=== PATIENT | male | born 1965 | race Caucasian/White ===

== ENCOUNTER 2016-11-07 18:37 | Emergency (ER) | payer OTHER ==
[~2016-11-07] VITALS: Ht 175.3 cm; Wt 98.3 kg
[2016-11-07 18:49] VITALS: TEMP 36.8; Ht 175.3 cm; Wt 98.3 kg
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
[2016-11-07] MEDS ORDERED: OPTIRAY 320 IV PRN (19:00)
[2016-11-07] MEDS ORDERED: XYLOCAINE 1%/SOD BICARB 20 ML VIAL INFIL ONE (19:00)
[2016-11-07] MEDS ORDERED: DIPHTHERIA/TETANUS/PERTUSSIS 0.5 ML SYR/VIAL IM. ONE (19:00)
[2016-11-07 19:17] LABS: HEMATOCRIT 43.4 % (42-52); MEAN CELL VOLUME 88.8 fL (80-100); MEAN CORPUSCULAR HEMOGLOBIN 32.9 pg (25-34); MEAN CORPUSCULAR HGB CONC 37.1 g/dl (32-36); MEAN PLATELET VOLUME 9.5 fL (7.4-10.4); PLATELET COUNT 181 K/uL (130-400); RED BLOOD COUNT 4.89 M/uL (4.7-6.1); WHITE BLOOD COUNT 9.71 K/uL (4.8-10.8)
[2016-11-07 19:17] LABS: ISTAT CREATININE 1.2 mg/dl (0.6-1.3); ISTAT HEMOGLOBIN 15.6 g/dl (14.0-18.0); ISTAT IONIZED CALCIUM 1.2 mmol/l (1.12-1.32)
[2016-11-07 19:32] LABS: PARTIAL THROMBOPLASTIN RATIO 0.9; PROTHROMBIN TIME (PATIENT) 10.7 SECONDS (9.0-12.0)
[2016-11-07 19:32] LABS: URINE APPEARANCE CLEAR (CLEAR); URINE BILIRUBIN NEG (NEG); URINE COLOR YELLOW; URINE NITRITE NEG (NEG); URINE PH 5.5 (4.5-7.5); URINE SPECIFIC GRAVITY 1.006 (1.000-1.030); UROBILINOGEN NEG (NEG); ZZUR CULT IF INDIC CLEAN CATCH NO
[2016-11-07 19:36] LABS: MANUAL MICROSCOPIC REQUIRED? NO; REVIEW REQ? NO
[2016-11-07 19:40] LABS: BUN/CREATININE RATIO 9.7 (10-20); CALCIUM 9.7 mg/dl (8.5-10.1); CREATININE 1.1 mg/dl (0.60-1.40); POTASSIUM 3.6 mmol/L (3.5-5.1)
[2016-11-07 19:43] LABS: ALB/GLOB RATIO 1.2 (0.9-2)
[2016-11-07 19:50] LABS: BENZODIAZEPINE, URINE NEG (NEG); COCAINE,URINE NEG (NEG); PHENCYCLIDINE, URINE NEG (NEG)
[2016-11-07 19:50] LABS: COMPLETE YES; EOSINOPHIL % 0.9 %; LYMPH ABS # 1.03 K/uL (1.2-3.4); LYMPHOCYTE % 10.6 %; MYELOCYTE % 0.9 %; NEUTROPHILS % 70.8 %; VARIANT LYMPHOCYTE % 12.4 %
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
[2016-11-07] MEDS ORDERED: AMOXICIL/CLAVU 875MG HOME PACK PO ONE (21:15)
[2016-11-07] MEDS ORDERED: AMOX875T PO (21:33)
[2016-11-07 22:09] VITALS: BP 128/80; PULSE 98; O2SAT 98
== END 2016-11-07 22:10 | disposition home or self-care (01) ==
LOC: EDBD 18:37 → C.EDA 18:39
DX: S01.81XA Laceration without foreign body of other part of head, initial encounter (principal); S02.2XXA Fracture of nasal bones, initial encounter for closed fracture; S30.811A Abrasion of abdominal wall, initial encounter; F10.129 Alcohol abuse with intoxication, unspecified; V47.5XXA Car driver injured in collision with fixed or stationary object in traffic accident, initial encounter; Y92.410 Unspecified street and highway as the place of occurrence of the external cause

== ENCOUNTER → 2016-11-07 | Outpatient (CLI) | payer OTHER ==
[~2016-11-07] MED LIST: AMOX875T PO; METO25TA3 PO; ONDA4TAB65 PO
== END | disposition home or self-care (01) ==
LOC: C.LAB 18:57
DX: Z02.83 Encounter for blood-alcohol and blood-drug test (principal)

== ENCOUNTER 2017-02-19 22:19 | Emergency (ER) | payer OTHER ==
[~2017-02-19] VITALS: Ht 175.3 cm; Wt 94.0 kg
[2017-02-19 22:38] VITALS: Ht 175.3 cm; Wt 94.0 kg
[2017-02-20 00:04] LABS: BASO % 0.2 %; BASO ABS # 0.02 K/uL (0-0.2); COMPLETE YES; EOS % 0.7 %; HEMATOCRIT 43.9 % (42-52); IG% 0.3 %; LYMPH % 10.4 %; LYMPH ABS # 1.01 K/uL (1.2-3.4); MEAN CORPUSCULAR HEMOGLOBIN 31.4 pg (25-34); MEAN CORPUSCULAR HGB CONC 35.3 g/dl (32-36); MEAN PLATELET VOLUME 9.4 fL (7.4-10.4); MONO % 5.2 %; NEUT % 83.2 %; PLATELET COUNT 211 K/uL (130-400); RED BLOOD COUNT 4.93 M/uL (4.7-6.1); WHITE BLOOD COUNT 9.69 K/uL (4.8-10.8)
[2017-02-20] MEDS ORDERED: ONDANSETRON INJ 2 MG/ML 2 ML VIAL IV STA (00:10)
[2017-02-20] MEDS ORDERED: KETOROLAC TROMETHAMINE 30 MG/ML VIAL IV STA (00:10)
[2017-02-20] MEDS ORDERED: SODIUM CHLORIDE 0.9% 1000ML 1,000 ML IV STA (00:10)
[2017-02-20] MEDS ORDERED: OPTIRAY 320 IV PRN (00:15)
[2017-02-20 00:23] LABS: ALT/SGPT 29 U/L (12-78); AST/SGOT 21 U/L (15-37); BLOOD UREA NITROGEN 14 mg/dl (7-18); BUN/CREATININE RATIO 14.1 (10-20); CALCIUM 9.3 mg/dl (8.5-10.1); CARBON DIOXIDE 30 mmol/L (21-32); CHLORIDE 107 mmol/L (98-107); CREATININE 0.98 mg/dl (0.60-1.40); GLUCOSE 139 mg/dl (70-99); POTASSIUM 4.1 mmol/L (3.5-5.1); SODIUM 144 mmol/L (136-145)
[2017-02-20 00:26] LABS: ALKALINE PHOSPHATASE 49 U/L (45-117)
[2017-02-20 00:46] LABS: URINE APPEARANCE CLEAR (CLEAR); URINE BILIRUBIN NEG (NEG); URINE COLOR YELLOW; URINE NITRITE NEG (NEG); URINE PH 6.5 (4.5-7.5); URINE SPECIFIC GRAVITY 1.027 (1.000-1.030); UROBILINOGEN NEG (NEG); ZZUR CULT IF INDIC CLEAN CATCH NO
[2017-02-20 00:51] LABS: MANUAL MICROSCOPIC REQUIRED? NO; REVIEW REQ? NO
[2017-02-20] MEDS ORDERED: METO25TA3 PO (01:40)
[2017-02-20] MEDS ORDERED: ONDA4TAB65 PO (02:05)
[2017-02-20 02:25] VITALS: BP 141/89; PULSE 62; TEMP 36.3; O2SAT 100
--- NOTE | 2017-02-20 04:01 | EMERGENCY ROOM VISIT NOTE ---
History Report prepared by Billieibmichi: Cristiano Lugo Under the Supervision of: Dr. Jason Rodríguez D.O. First contact with patient: 23:58 Chief Complaint: GI ASSESSMENT Stated Complaint: SICK IN STOMACH, CONSTIPATED History of Present Illness The patient is a 51 year old male who presents to the Emergency Room with complaints of constant abdominal pain since 1800. He rates his discomfort as a 6 /10 in severity. The patient reports that he went to [facility], had chicken parmesan and ice cream, returned home. He states that he started to experience abdominal pain, diaphoresis, nausea, and vomiting around 1800 after his visit to [facility]. The patient states that he vomited his food a total of three times. He admits he feels mild relief after vomiting but admits the nausea shortly returns. He reports that he has been feeling like he needs to have a bowel movement, but cannot move anything. The patient states he was able to move his bowels earlier today. He admits that the pain is diffuse in the middle of his belly tracking from suprapubic region to just above his umbilicus. The patient is accompanied by his daughter who states she has been feeling fine, despite eating the same food as him. The patient denies headache, change in vision, fevers, chest pain, shortness of breath, diarrhea, pain with urination, and melena. Source of History: patient Onset: 1800 Position: abdomen Symptom Intensity: 6/10 Timing: constant Associated Symptoms: + nausea, + vomiting Review of Systems See HPI for pertinent positives & negatives. A total of 10 systems reviewed and were otherwise negative. Past Medical & Surgical Medical Problems: (1) Hypertension Family History Hypertension Social History Smoking Status: Never Smoker Smokeless Tobacco Use: No Alcohol Use: none Drug Use: none Marital Status: Housing Status: lives with family Occupation Status: employed Current/Historical Medications Scheduled Metoprolol Succ (Toprol Xl) (Toprol-Xl), 25 MG PO DAILY Ondansetron Hcl (Zofran), 4 MG PO TID Allergies Coded Allergies: No Known Allergies (Unverified , 02/20/17) Physical Exam Vital Signs Date Time Temp Pulse Resp B/P (MAP) Pulse Ox O2 Delivery O2 Flow Rate FiO2 02/20/17 02:25 36.3 62 18 141/89 100 02/20/17 02:24 62 18 141/89 100 Room Air 02/20/17 01:39 61 18 148/88 100 Room Air 02/20/17 00:39 61 18 152/91 100 Room Air 02/19/17 22:38 36.3 61 18 185/91 99 Room Air Physical Exam GENERAL: Standing in room, alert, well appearing, well nourished, disheveled, slightly distress, non-toxic EYE EXAM: normal conjunctiva, PERRL and EOM's grossly intact OROPHARYNX: no exudate, no erythema, lips, buccal mucosa, and tongue normal and mucous membranes are moist NECK: supple, no nuchal rigidity, no adenopathy, non-tender LUNGS: Clear to auscultation. Normal chest wall mechanics HEART: no murmurs, S1 normal and S2 normal ABDOMEN: Minimal diffuse tenderness upon palpation, abdomen soft, normal active bowel sounds, no masses, no rebound or guarding. BACK: Back is symmetrical on inspection and there is no deformity, no midline tenderness, no CVA tenderness. SKIN: no rashes and no bruising UPPER EXTREMITIES: upper extremities are grossly normal. LOWER EXTREMITIES: No pitting edema. NEURO EXAM: Normal sensorium, cranial nerves II-XII grossly intact, normal speech, no gross weakness of arms, no gross weakness of legs. Gross sensation intact. Medical Decision & Procedures ER Provider Diagnostic Interpretation: Radiology results as stated below per my review and the radiologist's interpretation: CT ABDOMEN & PELVIS: Compared to CT abdomen and pelvis 11/07/2016 L1 compression fracture, acute versus subacute. Cholelithiasis without CT evidence of acute cholecystitis or acute pancreatitis. Small hiatal hernia. No bowel obstruction. Unremarkable appendix. There are a few colonic diverticula, but no Ct evidence of acute diverticulitis. No free fluid. No free air. Radiologist: Ermelinda Medellin M.D. Laboratory Results 02/19/17 23:40 Red Blood Count 4.93, Mean Corpuscular Volume 89.0, Mean Corpuscular Hemoglobin 31.4, Mean Corpuscular Hemoglobin Concent 35.3, Mean Platelet Volume 9.4, Neutrophils (%) (Auto) 83.2, Lymphocytes (%) (Auto) 10.4, Monocytes (%) (Auto) 5.2, Eosinophils (%) (Auto) 0.7, Basophils (%) (Auto) 0.2, Neutrophils # (Auto) 8.06, Lymphocytes # (Auto) 1.01, Monocytes # (Auto) 0.50, Eosinophils # (Auto) 0.07, Basophils # (Auto) 0.02 02/19/17 23:40 Test 02/19/17 23:40 02/20/17 00:33 White Blood Count 9.69 K/uL (4.8-10.8) Red Blood Count 4.93 M/uL (4.7-6.1) Hemoglobin 15.5 g/dL (14.0-18.0) Hematocrit 43.9 % (42-52) Mean Corpuscular Volume 89.0 fL (80-100) Mean Corpuscular Hemoglobin 31.4 pg (25-34) Mean Corpuscular Hemoglobin Concent 35.3 g/dl (32-36) Platelet Count 211 K/uL (130-400) Mean Platelet Volume 9.4 fL (7.4-10.4) Neutrophils (%) (Auto) 83.2 % Lymphocytes (%) (Auto) 10.4 % Monocytes (%) (Auto) 5.2 % Eosinophils (%) (Auto) 0.7 % Basophils (%) (Auto) 0.2 % Neutrophils # (Auto) 8.06 K/uL (1.4-6.5) Lymphocytes # (Auto) 1.01 K/uL (1.2-3.4) Monocytes # (Auto) 0.50 K/uL (0.11-0.59) Eosinophils # (Auto) 0.07 K/uL (0-0.5) Basophils # (Auto) 0.02 K/uL (0-0.2) RDW Standard Deviation 38.7 fL (36.4-46.3) RDW Coefficient of Variation 12.0 % (11.5-14.5) Immature Granulocyte % (Auto) 0.3 % Immature Granulocyte # (Auto) 0.03 K/uL (0.00-0.02) Anion Gap 7.0 mmol/L (3-11) Est Creatinine Clear Calc Drug Dose 103.2 ml/min Estimated GFR () 104.5 Estimated GFR (Non- 90.2 BUN/Creatinine Ratio 14.1 (10-20) Calcium Level 9.3 mg/dl (8.5-10.1) Total Bilirubin 0.4 mg/dl (0.2-1) Direct Bilirubin < 0.1 mg/dl (0-0.2) Aspartate Amino Transf (AST/SGOT) 21 U/L (15-37) Alanine Aminotransferase (ALT/SGPT) 29 U/L (12-78) Alkaline Phosphatase 49 U/L (45-117) Total Protein 7.3 gm/dl (6.4-8.2) Albumin 3.9 gm/dl (3.4-5.0) Lipase 233 U/L (73-393) Urine Color YELLOW Urine Appearance CLEAR (CLEAR) Urine pH 6.5 (4.5-7.5) Urine Specific [place] 1.027 (1.000-1.030) Urine Protein NEG (NEG) Urine Glucose (UA) NEG (NEG) Urine Ketones TRACE (NEG) Urine Occult Blood NEG (NEG) Urine Nitrite NEG (NEG) Urine Bilirubin NEG (NEG) Urine Urobilinogen NEG (NEG) Urine Leukocyte Esterase NEG (NEG) Urine WBC (Auto) 1-5 /hpf (0-5) Urine RBC (Auto) 0-4 /hpf (0-4) Urine Hyaline Casts (Auto) 1-5 /lpf (0-5) Urine Epithelial Cells (Auto) 10-20 /lpf (0-5) Urine Bacteria (Auto) NEG (NEG) Laboratory results per my review. Medications Administered Medications (Trade) Dose Ordered Sig/Estee Route Start Time Stop Time Status Last Admin Dose Admin Sodium Chloride 1,000 ml @ 999 mls/hr Q1H1M STAT IV 02/20/17 00:10 02/20/17 01:10 DC 02/20/17 00:28 999 MLS/HR Ondansetron HCl (Zofran Inj) 4 mg NOW STAT IV 02/20/17 00:10 02/20/17 00:12 DC 02/20/17 00:28 4 MG Ketorolac Tromethamine (Toradol Inj) 30 mg NOW STAT IV 02/20/17 00:10 02/20/17 00:12 DC 02/20/17 00:29 30 MG ED Course ED COURSE: Vital signs were reviewed and showed hypertension. The patients medical record was reviewed The above diagnostic studies were performed and reviewed. ED treatments and interventions as stated above. 0001: The patient was evaluated in room A11B. A complete history and physical examination was performed. 0010: Toradol Injection 30 mg IV, Zofran Injection 4 mg IV, Sodium chloride 1000 ml @ 999 mls/hr IV. 0015: Ioversol 100 ml IV. 0228: Upon reevaluation, the patient is feeling better. I discussed the findings and the treatment plan with the patient. He verbalizes agreement and understanding. He was discharged home. Medical Decision Differential diagnoses includes but is not limited to gastritis, peptic ulcer disease, GERD, gallbladder disease, pancreatitis, small bowel obstruction, acute coronary syndrome, pericarditis, ischemic bowel, irritable bowel disease, irritable bowel syndrome, appendicitis, diverticulitis, malignancy, hernia, urinary tract infection, torsion, perforation, trauma, infectious. Blood pressure screening: Patient was found to have an elevated blood pressure and was referred to their primary doctor for recheck and further treatment. Medication Reconciliation: I attest that I have personally reviewed the patient' s current medication list. Patient is a 51-year-old male who presents the ER for diffuse abdominal pain associated with nausea and vomiting. This started suddenly after eating dinner. No other sick contacts. Patient notes that after he vomits he does feel slightly better. Vitals show hypertension. CBC along with BMP, LFTs, bilirubin and lipase are normal. UA was negative. CT of the abdomen and pelvis was negative. Patient was given fluids, Zofran and Toradol. He felt sniffly better. No additional vomiting in the ER. Repeat abdominal exam was benign. He was updated in regards to his findings and discharged to follow-up with PCP. Discussed with Pt concerning signs and symptoms to watch out for. Pt was instructed to follow up with their PCP and discussed with the patient their option to return to the ED at anytime for persistent or worsening symptoms. The appropriate anticipatory guidance and out-patient management, including indications for return to the emergency department, were explained at length to the patient and understood. Impression Primary Impression: Vomiting Additional Impression: Diffuse abdominal pain Scribe Attestation The scribe's documentation has been prepared under my direction and personally reviewed by me in its entirety. I confirm that the note above accurately reflects all work, treatment, procedures, and medical decision making performed by me. Departure Information Dispostion Home / Self-Care Prescriptions Ondansetron Hcl (ZOFRAN) 4 Mg Tab 4 MG PO TID for nausea for 5 Days, #15 TAB Prov: Jason Rodríguez, DO 02/20/17 Referrals William Neumann M.D. (PCP) Forms HOME CARE DOCUMENTATION FORM, IMPORTANT VISIT INFORMATION Patient Instructions My [facility] Additional Instructions Please follow up with your primary care doctor with in the next 24 hours. Any worsening of your symptoms, please return to the ED immediately. This includes bloody vomit, unable to eat or drink, passing out, worsening pain, or any other concerning signs or symptoms from your standpoint. Problem Qualifiers Primary Impression: Vomiting Vomiting type: unspecified Vomiting Intractability: non-intractable Nausea presence: with nausea Qualified Codes: R11.2 - Nausea with vomiting, unspecified
--- NOTE | 2017-02-20 06:50 | DIAGNOSTIC IMAGING REPORT ---
CT ABD/PELVIS IV CONTRAST ONLY CLINICAL HISTORY: Diffuse abdominal pain COMPARISON STUDY: 11/07/2016 TECHNIQUE: Following the IV administration of 93 mL of Optiray-320, CT scan of the abdomen and pelvis was performed from the lung bases to the proximal femurs. Images are reviewed in the axial, sagittal, and coronal planes. IV contrast was administered without complication. CT DOSE: 553.62 mGy.cm FINDINGS: Lower chest: There is minor basilar atelectatic change Liver: There is a to small to characterize 6 mm hypodensity within the right hepatic lobe immediately beneath the dome of the diaphragm Gallbladder: There is a gallstone present. The gallbladder is distended. No ductal dilatation is visualized. Spleen: Normal in size and attenuation. Pancreas: Unremarkable. Adrenal glands: Unremarkable. Kidneys: Is a 7 mm right renal hypodensity, likely representing a cyst. There is no hydronephrosis. Bowel: There are no transition zones indicate bowel obstruction. The appendix appears normal. There are few scattered diverticula present. There is very subtle stranding of the peridiverticular fat at the descending sigmoid junction. Minimal diverticulitis cannot be excluded. Peritoneum: There is no intraperitoneal free air or abdominal ascites. There is a fat-containing left inguinal hernia Vasculature: The abdominal aorta is normal in course and caliber. Adenopathy: None. Pelvic viscera: The bladder, and pelvic viscera are unremarkable. 5. Fat-containing left inguinal hernia Skeletal structures: There is a minimal superior endplate L1 compression deformity. There is disc osteophyte complex at the L3-4 level. IMPRESSION: 1. No evidence of bowel obstruction. No evidence of free air 2. Cholelithiasis. Mildly distended gallbladder. 3. Normal appendix 4. Fat-containing left inguinal hernia 5. Minimal fat stranding adjacent to a diverticulum at the descending sigmoid junction. Minimal diverticulitis cannot be excluded. This finding was not described on the pulmonary report, and therefore will be called. Electronically signed by: Edmundo Cross M.D. 02/20/2017 6:49 AM Dictated Date/Time: 02/20/2017 6:41 AM
--- NOTE | 2017-02-20 11:20 | Pharmacy Progress Note ---
ED Pharmacist Progress Note Date of Service: Feb 20, 2017. Requested by charge loader to contact patient to inform of diverticulitis (per CT) and need for antibiotics per Dr. Rodríguez. Spoke with patient and informed of above. Confirmed NKDA. Prescription for Augmentin 875 mg po BID x10 days, 0 refill, Dr. Rodríguez called to [facility] at the patient's request.
== END 2017-02-20 02:26 | disposition home or self-care (01) ==
LOC: C.EDB 22:20 → C.EDA 02-20 02:26
DX: R11.2 Nausea with vomiting, unspecified (principal); R10.9 Unspecified abdominal pain; I10 Essential (primary) hypertension

== ENCOUNTER 2017-05-31 08:52 | Observation (INO) | payer OTHER ==
[~2017-05-31] VITALS: Ht 175.3 cm; Wt 98.5 kg
[~2017-05-31 08:52] MED LIST changes: -AMOX875T PO; -ONDA4TAB65 PO
[2017-05-31] MEDS ORDERED: SERT25TA PO (09:29)
[2017-05-31] MEDS ORDERED: SODIUM CHLORIDE 0.9% 1000ML 1,000 ML IV STA (10:16)
[2017-05-31] MEDS ORDERED: PROMETHAZINE HCL INJ 12.5 MG in SODIUM CHLORIDE 0.9% 50ML 50 ML IV STA (10:16)
[2017-05-31] MEDS ORDERED: MoRPHine SULFATE 4 MG/ML 1 ML CARP\\VIAL IV STA (10:16)
[2017-05-31 10:27] LABS: BASO % 0.2 %; BASO ABS # 0.02 K/uL (0-0.2); COMPLETE YES; HEMATOCRIT 43.8 % (42-52); IG% 0.2 %; LYMPH % 6.6 %; LYMPH ABS # 0.87 K/uL (1.2-3.4); MEAN CELL VOLUME 87.4 fL (80-100); MEAN CORPUSCULAR HEMOGLOBIN 31.5 pg (25-34); MEAN CORPUSCULAR HGB CONC 36.1 g/dl (32-36); MEAN PLATELET VOLUME 9.4 fL (7.4-10.4); MONO % 3.3 %; NEUT % 89.7 %; PLATELET COUNT 177 K/uL (130-400); RED BLOOD COUNT 5.01 M/uL (4.7-6.1); WHITE BLOOD COUNT 13.09 K/uL (4.8-10.8)
[2017-05-31 10:53] LABS: BUN/CREATININE RATIO 14.1 (10-20); CALCIUM 9.3 mg/dl (8.5-10.1); POTASSIUM 4.2 mmol/L (3.5-5.1)
[2017-05-31] MEDS ORDERED: OPTIRAY 320 IV PRN (11:30)
--- NOTE | 2017-05-31 11:34 | DIAGNOSTIC IMAGING REPORT ---
CT SCAN OF THE ABDOMEN AND PELVIS WITH IV CONTRAST CLINICAL HISTORY: Generalized abdominal pain. Vomiting. COMPARISON STUDY: Abdominal CT dated 02/20/2017. TECHNIQUE: Following the IV administration of 93 cc of Optiray 320, CT scan of the abdomen and pelvis is performed from the lung bases to the proximal femora. Images are reviewed in the axial, sagittal, and coronal planes. IV contrast was administered without complication. A dose lowering technique was utilized adhering to the principles of ALARA. CT DOSE: 624.32 mGy.cm FINDINGS: Lung bases: The heart is top normal in size and without pericardial effusion. There is bibasilar atelectasis. A calcified granuloma is noted at the left lung base. The lung bases are otherwise clear. There is a small hiatal hernia. Liver: The contrast-enhanced liver is top normal in size and demonstrates diminished attenuation suggesting hepatic steatosis. A 12 mm cyst is seen in the right lobe. An additional subcentimeter hypodensity in segment VIII seen on image #41 is unchanged. This also likely represents a cyst but is too small for definitive characterization.. There is no intrahepatic biliary ductal dilatation. The hepatic veins and portal veins are patent. Gallbladder: The gallbladder wall is thickened and edematous. There is pericholecystic inflammation and trace fluid. The appearance is consistent with acute cholecystitis. Spleen: Normal in size and attenuation. Pancreas: Unremarkable. Adrenal glands: Unremarkable. Kidneys: The contrast enhanced kidneys are normal in size and without hydronephrosis. The kidneys enhance symmetrically. A subcentimeter cortical hypodensity in the right upper pole likely represents a cyst but is too small for definitive characterization. Abdominal vasculature: The abdominal aorta is normal in course and caliber. Bowel: The small bowel and colon are normal in course and caliber. The appendix is well-visualized and normal. Peritoneum: There is no intraperitoneal free air or abdominal ascites. There is a small fat-containing umbilical hernia. Lymphadenopathy: None. Pelvic viscera: The bladder, prostate, and seminal vesicles are normal as imaged. Skeletal structures: No lytic or blastic lesions are seen. IMPRESSION: 1. Findings are consistent with acute cholecystitis. Surgical consultation is advised. 2. Findings suggest mild hepatic steatosis. 3. Additional findings as above. Electronically signed by: Lai Naik M.D. 05/31/2017 11:33 AM Dictated Date/Time: 05/31/2017 11:28 AM
--- NOTE | 2017-05-31 12:20 | DIAGNOSTIC IMAGING REPORT ---
ABDOMINAL ULTRASOUND, RIGHT UPPER QUADRANT HISTORY: Generalized ABDOMINAL PAIN, ACUTE JAVID ON CT. COMPARISON: Abdomen and pelvis CT 05/31/2017. FINDINGS: Pancreas: Obscured by overlying bowel gas. Liver: The liver is echogenic consistent with fatty change. Gallbladder: Thickened and irregular gallbladder wall measures up to 4 mm. Trace pericholecystic fluid. Increased echogenicity within the surrounding fat suggestive of inflammatory change. There is a 1.7 cm stone within the neck of the gallbladder which may be impacted. Therefore, these findings are highly suspicious for acute cholecystitis. CBD: Obscured by overlying bowel gas. Right kidney: No hydronephrosis. IMPRESSION: Abnormal appearing gallbladder containing a 1.7 cm stone which may be impacted in the gallbladder neck. These findings are highly suspicious for acute cholecystitis. Surgical consultation is recommended. Electronically signed by: Austen Kevin M.D. 05/31/2017 12:19 PM Dictated Date/Time: 05/31/2017 12:16 PM
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
[2017-05-31] MEDS ORDERED: CONRAY 60% 50 ML VIAL ONE (13:39)
[2017-05-31] MEDS ORDERED: HEPARIN SOD (PORCINE) 1000 UNIT/ML 10 ML VIAL ONE (13:39)
[2017-05-31] MEDS ORDERED: BUPIVACAINE 0.5 % 5 MG/1 ML MPF 30ML VIAL ONE (13:39)
[2017-05-31] MEDS ORDERED: CEFAZOLIN SOD 1 GM VIAL ONE (13:39)
[2017-05-31] MEDS ORDERED: EpHEDrine SULFATE INJ 50 MG/ML AMP IV PRN (13:45)
[2017-05-31] MEDS ORDERED: ATROPINE SULFATE 0.1 MG/ML 5ML SYR IV PRN (13:45)
[2017-05-31] MEDS ORDERED: FENTANYL CITRATE INJ 50 MCG/1 ML 2 ML VIAL IV PRN (13:45)
[2017-05-31] MEDS ORDERED: FENTANYL CITRATE INJ 50 MCG/1 ML 2 ML VIAL ONE ×2 (13:50→15:21)
[2017-05-31] MEDS ORDERED: MIDAZOLAM HCL 1 MG/ML 2ML VIAL ONE (13:50)
[2017-05-31] MEDS ORDERED: CEFAZOLIN IV 2,000 MG/60 ML D5W IV ONE (13:59)
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
[2017-05-31] MEDS ORDERED: ROCURONIUM BROMIDE 10 MG/ML 5 ML VIAL IV ONE (14:51)
[2017-05-31] MEDS ORDERED: GLYCOPYRROLATE INJ 0.2 MG/ML VIAL ONE (14:51)
[2017-05-31] MEDS ORDERED: SUCCINYLCHOLINE 100MG/5ML SYR IV ONE (14:51)
[2017-05-31] MEDS ORDERED: LIDOCAINE HCL 2% 2 ML VIAL (20MG/ML) ONE (14:51)
[2017-05-31] MEDS ORDERED: DEXAMETHASONE SOD INJ 4 MG/ML VIAL ONE (14:51)
[2017-05-31] MEDS ORDERED: NEOSTIGMINE METHYLSULFATE 5 MG/5 ML SYR ONE (14:51)
[2017-05-31] MEDS ORDERED: PROPOFOL IV EMULSION 10 MG/ML 20 ML VIAL IV ONE (14:51)
[2017-05-31] MEDS ORDERED: METOCLOPRAMIDE HCL INJ 5 MG/ML 2 ML VIAL ONE (14:51)
[2017-05-31] MEDS ORDERED: EpHEDrine SULFATE INJ 50 MG/ML AMP ONE (14:52)
[2017-05-31] MEDS ORDERED: PHENYLEPHRINE HCL INJ 10 MG/ML VIAL ONE (14:52)
[2017-05-31] MEDS ORDERED: D5W AND 1/2NSS + 20MEQ KCL 1,000 ML IV SCH (16:01)
--- NOTE | 2017-05-31 16:01 | [facility] Post Operative Brief Note ---
Immediate Operative Summary Operative Date May 31, 2017. Pre-Operative Diagnosis Acute Cholecystitis Post-Operative Diagnosis Acute Cholecystitis Procedure(s) Performed Laparoscopic Cholecystectomy Surgeon Galen Ui Lead Developer Surgeon(s) Iram Mandujano PA-C Estimated Blood Loss 20CC Findings See idctation Specimens A: Gallbladder and Contents Drains None Anesthesia General Complication(s) None Disposition Recovery Room / PACU
[2017-05-31] MEDS ORDERED: MoRPHine SULFATE 4 MG/ML 1 ML CARP\\VIAL IV PRN (16:15)
[2017-05-31] MEDS ORDERED: OXYCODONE/ACETAMINOPHEN 5-325 TAB PO PRN (16:15)
[2017-05-31] MEDS ORDERED: IV FLUIDS COMPLETED PRN (16:30)
--- NOTE | 2017-05-31 16:31 | OPERATIVE REPORT ---
DATE OF OPERATION: 05/31/2017 PREOPERATIVE DIAGNOSES: Cholelithiasis, acute cholecystitis. POSTOPERATIVE DIAGNOSIS: Same. PROCEDURE: Laparoscopic cholecystectomy. SURGEON: Dr. Aaron. RENT CONTROL OFFICE MANAGER: Iram Mandujano PA-C. FINDINGS: The gallbladder wall was markedly thickened. There were stones within the lumen. There were adhesions of the omentum to the gallbladder. The cystic duct was not dilated. The liver was of normal size and contour. TECHNIQUE: The patient was given a general anesthetic and the area was prepped and draped in usual sterile fashion. Transverse incision was made below the umbilicus, carried down through the subcutaneous tissue to the fascia which was grasped with 2 Megan clamps and incised between. The peritoneum was identified, incised, and the introducer was placed bluntly. The abdomen was then insufflated to a pressure of 15 mmHg of carbon dioxide. The upper midline, mid clavicular and anterior axillary introducers were placed under direct vision through small skin incisions. I attempted to grasp the gallbladder to place traction, but could not. The drainage needle was then passed under direct vision into the gallbladder and some bile was removed which did eventually allow us to grasp the gallbladder to place upward traction. The adhesions were taken down using blunt and cautery dissection where appropriate. The duodenum was adherent to the inferior portion of the infundibulum, but fortunately those were flimsy and were taken down with ease. No cautery was used for that dissection. I was then able to identify the infundibulum, elevate it and divide the attachments on the underside of the infundibulum and work up along the infundibulum towards the body and divide the attachments to the liver in that area. I then peeled additional thickened peritoneum and some lymphatics and connective tissue inferiorly towards the common bile duct and worked into the triangle of Calot opening it and dissecting the gallbladder away from the liver on that side. It required additional meticulous dissection staying on the wall of the gallbladder at the level of the infundibulum and dissecting it away from the liver working from lateral to medial. That then exposed a window behind the cystic duct. I then had to dissect the medial wall of the cystic duct free using blunt cautery and some hydrodissection as well. That allowed me then to confidently identify the cystic duct and its junction with the gallbladder. Further dissection of those lymphatics and connective tissue and thickened tissues off the medial wall peeled towards the common bile duct exposed the cystic artery. There was a good window behind those 2 structures. Three clips were placed on the proximal cystic duct, one near the junction with the gallbladder and it was divided. The infundibulum was elevated and further dissection of the artery was performed. There appeared to be a branch that was entering the liver and I then stayed on the gallbladder, dissected the infundibulum away from the liver working from this time medial to lateral, which allowed a good plane behind the portion of the artery that was extending to the gallbladder. Two clips were placed on the proximal portion of the artery, one near the gallbladder and it was divided. Gallbladder was then peeled off the liver bed. There was not a good plane of dissection. It required meticulous careful dissection to stay on the wall of the gallbladder and to stay in a plane that did not violate the liver tissue. I was eventually able to complete that dissection. The gallbladder was placed into an Endobag and brought out through the upper midline incision where the skin incision had to be increased in size as well as the incision in the fascia in order to extract the gallbladder within the bag. That introducer was replaced and liver edge was elevated. The subdiaphragmatic and subhepatic spaces were irrigated and the irrigation removed and that was repeated until the return was clear. Inspection of the gallbladder bed of the liver revealed 1 small area of oozing that was easily controlled with cautery. The previously placed clips were inspected and were intact. Further irrigation was performed, removed and the gallbladder bed of the liver was again inspected and there was no bleeding. The gas was allowed to escape and the introducers were removed. The fascia of the umbilical and upper midline introducer sites was closed with interrupted 0 Vicryl and skin of all the incisions was closed with 4-0 Monocryl in either an interrupted or running subcuticular fashion. Skin was anesthetized with 0.5% Marcaine. The skin was cleansed, dried, benzoin placed, Steri-Strips applied. Estimated blood loss was 20 mL. Sponge, needle and instrument counts were correct prior to closure. The patient tolerated the surgical procedure without complication and was transferred to recovery. I attest to the content of the Intraoperative Record and any orders documented therein. Any exception s are noted below.
--- NOTE | 2017-05-31 16:57 | Anesthesiology Progress Note ---
Anesthesia Post Op Note Date & Time May 31, 2017 at 16:57 Vital Signs Pain Intensity: 0 Vital Signs Past 12 Hours Date Time Temp Pulse Resp B/P (MAP) Pulse Ox O2 Delivery O2 Flow Rate FiO2 05/31/17 16:54 89 25 99 05/31/17 16:54 89 25 05/31/17 16:50 133/76 05/31/17 16:49 89 22 05/31/17 16:49 89 22 99 05/31/17 16:45 130/75 05/31/17 16:44 88 18 100 05/31/17 16:44 89 18 05/31/17 16:40 133/76 05/31/17 16:39 91 18 05/31/17 16:39 91 18 99 05/31/17 16:35 127/74 05/31/17 16:34 96 18 100 05/31/17 16:34 95 18 05/31/17 16:30 133/73 05/31/17 16:29 102 12 100 05/31/17 16:29 102 12 05/31/17 16:25 133/71 05/31/17 16:24 36.6 93 18 137/72 100 Oxymask 10 05/31/17 16:24 97 24 137/72 100 05/31/17 16:24 98 24 05/31/17 13:48 70 16 168/101 97 05/31/17 12:29 70 16 168/101 97 Room Air 05/31/17 10:46 76 16 172/97 98 Room Air 05/31/17 09:28 77 16 165/94 98 Room Air 05/31/17 09:03 36.7 82 16 166/99 98 Room Air Notes Mental Status: alert / awake / arousable, participated in evaluation Pt Amnestic to Procedure: Yes Nausea / Vomiting: adequately controlled Pain: adequately controlled Airway Patency, RR, SpO2: stable & adequate BP & HR: stable & adequate Hydration State: stable & adequate Anesthetic Complications: no major complications apparent
[2017-05-31 17:20] VITALS: BP 135/83; PULSE 90; TEMP 37; O2SAT 97; Ht 175.3 cm; Wt 98.5 kg
[2017-05-31 17:52] VITALS: BP 136/77; PULSE 88; TEMP 36.8; O2SAT 97
[2017-05-31] MEDS: D5W AND 1/2NSS + 20MEQ KCL 1,000 ML IV SCH (18:08)
[2017-05-31 18:27] VITALS: BP 132/71; PULSE 93; TEMP 37.1; O2SAT 97
[2017-05-31 19:20] VITALS: BP 133/74; PULSE 101; TEMP 37; O2SAT 96
[2017-05-31] MEDS ORDERED: NURSING DECISION MEDICATION ORDER SCH (20:15)
[2017-05-31] MEDS ORDERED: COUGH DROP (SUGAR FREE) LOZ 24 LOZ/1 BOX PO PRN (20:15)
[2017-05-31 20:26] VITALS: BP 138/68; PULSE 110; TEMP 37.5; O2SAT 94
[2017-05-31 23:17] VITALS: BP 126/75; PULSE 101; TEMP 36.9; O2SAT 96
[2017-06-01] MEDS: D5W AND 1/2NSS + 20MEQ KCL 1,000 ML IV SCH (03:24)
[2017-06-01 04:00] VITALS: BP 131/79; PULSE 94; TEMP 36.8; O2SAT 94
[2017-06-01 07:29] VITALS: BP 151/91; PULSE 84; TEMP 36.4; O2SAT 96
--- NOTE | 2017-06-01 08:11 | Anesthesiology Progress Note ---
Anesthesia Post Op Note Date & Time Jun 01, 2017 at 08:10 Vital Signs Pain Intensity: 4.0 Vital Signs Past 12 Hours Date Time Temp Pulse Resp B/P (MAP) Pulse Ox O2 Delivery O2 Flow Rate FiO2 06/01/17 07:29 36.4 84 17 151/91 (111) 96 Room Air 06/01/17 04:00 36.8 94 14 131/79 (96) 94 Room Air 05/31/17 23:17 36.9 101 16 126/75 (92) 96 Room Air 05/31/17 23:15 Room Air 05/31/17 20:26 37.5 110 16 138/68 (91) 94 Notes Mental Status: alert / awake / arousable, participated in evaluation Pt Amnestic to Procedure: Yes Nausea / Vomiting: adequately controlled Pain: adequately controlled Airway Patency, RR, SpO2: stable & adequate BP & HR: stable & adequate Hydration State: stable & adequate Anesthetic Complications: no major complications apparent
[2017-06-01] MEDS ORDERED: OXYC-57 PO (08:50)
--- NOTE | 2017-06-01 08:54 | Discharge Instructions ---
Discharge Instructions Date of Service Jun 01, 2017. Admission Reason for Admission: Acute Cholecystitis Discharge Discharge Diagnosis / Problem: same Discharge Goals Goal(s): Decrease discomfort, Improve function Activity Recommendations Activity Limitations: as noted below No heavy lifting over 20 pounds for 2 weeks no strenuous activity until cleared by surgeon No submerging incisions underwater for 2 weeks or until incisions healed (no swimming, bathing, or hot tubs) No driving while taking narcotic pain medication or until you are pain free . Instructions / Follow-Up Instructions / Follow-Up You may shower this evening leave steri strips on incision for 7 days and then removed, they may fall off on their own that is okay You do not need to keep a dressing on incisions unless they are draining Walking and light activity is encouraged to prevent blood clots from forming Follow-up in surgical office in 2 weeks, please call office at [phone] to make an appointment with Iram Mandujano PA-C/Dr. Aaron Current Hospital Diet Patient's current hospital diet: Regular Diet Discharge Diet Recommended Diet: Regular Diet Procedures Procedures Performed: Laparoscopic Cholecystectomy Pending Studies Studies pending at discharge: yes List of pending studies: Gallbladder pathology- will be reviewed at follow up visit Medical Emergencies . Who to Call and When: Medical Emergencies: If at any time you feel your situation is an emergency, please call 911 immediately. . Non-Emergent Contact Non-Emergency issues call your: Primary Care Provider, Surgeon Call Non-Emergent contact if: you have a fever, temperature is above 101.5, your pain is not controlled, your pain is worsening, your pain is unusual for you, wound has increased drainage, wound has increased redness, wound has increased pain . "Provider Documentation" section prepared by Iram Mandujano. . VTE Core Measure Inpt VTE Proph given/why not?: SCD's [place] Drug Monitoring Program Search Results: patient reviewed within database, no issues identified
[2017-06-01] MEDS ORDERED: METOPROLOL SUCC 25MG EXT REL TAB PO SCH ×2 (09:00)
[2017-06-01] MEDS ORDERED: SERTRALINE HCL 50 MG TAB PO SCH ×2 (09:00)
--- NOTE | 2017-06-01 09:44 | Surgery Progress Note ---
Surgery Progress Note Date of Service Jun 01, 2017. Subjective Post OP Day: 1 (s/p laparoscopic cholecystectomy) + feeling well, + pain controlled, + diet (regular diet), No complaints, No bowel movement, No flatus, No nausea, No vomiting Objective Vital Signs: Date Time Temp Pulse Resp B/P (MAP) Pulse Ox O2 Delivery O2 Flow Rate FiO2 06/01/17 07:29 36.4 84 17 151/91 (111) 96 Room Air 06/01/17 07:20 Room Air 06/01/17 04:00 36.8 94 14 131/79 (96) 94 Room Air 05/31/17 23:17 36.9 101 16 126/75 (92) 96 Room Air 05/31/17 23:15 Room Air 05/31/17 20:26 37.5 110 16 138/68 (91) 94 05/31/17 19:20 37.0 101 18 133/74 (93) 96 05/31/17 18:27 37.1 93 18 132/71 (91) 97 05/31/17 17:52 36.8 88 18 136/77 (96) 97 05/31/17 17:20 37.0 90 16 135/83 97 Nasal Cannula 2.0 05/31/17 17:20 97 Nasal Cannula 2.0 05/31/17 17:20 37.0 90 16 135/83 (100) 97 Nasal Cannula 2.0 05/31/17 17:10 36.6 05/31/17 17:05 84 19 138/78 98 05/31/17 17:05 84 19 05/31/17 17:00 85 21 130/78 97 05/31/17 17:00 86 21 05/31/17 16:55 93 17 141/80 97 05/31/17 16:55 93 17 05/31/17 16:54 89 25 99 05/31/17 16:54 89 25 05/31/17 16:50 133/76 05/31/17 16:49 89 22 05/31/17 16:49 89 22 99 05/31/17 16:45 130/75 05/31/17 16:44 88 18 100 05/31/17 16:44 89 18 05/31/17 16:40 133/76 05/31/17 16:39 91 18 05/31/17 16:39 91 18 99 05/31/17 16:35 127/74 05/31/17 16:34 96 18 100 05/31/17 16:34 95 18 05/31/17 16:30 133/73 05/31/17 16:29 102 12 100 05/31/17 16:29 102 12 05/31/17 16:25 133/71 05/31/17 16:24 36.6 93 18 137/72 100 Oxymask 10 05/31/17 16:24 97 24 137/72 100 05/31/17 16:24 98 24 05/31/17 13:48 70 16 168/101 97 05/31/17 12:29 70 16 168/101 97 Room Air 05/31/17 10:46 76 16 172/97 98 Room Air General Appearance: WD/WN, no apparent distress Head: normocephalic, atraumatic Neck: trachea midline Respiratory/Chest: no respiratory distress, no accessory muscle use Abdomen: non tender, non distended, soft, no organomegaly, no pulsatile mass Incision(s): clean, dry, intact, findings (steri strips present, dressing on uppder midline incision, dry) Laboratory Results: Results Past 24 Hours Test 05/31/17 10:10 Range/Units White Blood Count 13.09 4.8-10.8 K/uL Red Blood Count 5.01 4.7-6.1 M/uL Hemoglobin 15.8 14.0-18.0 g/dL Hematocrit 43.8 42-52 % Mean Corpuscular Volume 87.4 80-100 fL Mean Corpuscular Hemoglobin 31.5 25-34 pg Mean Corpuscular Hemoglobin Concent 36.1 32-36 g/dl Platelet Count 177 130-400 K/uL Mean Platelet Volume 9.4 7.4-10.4 fL Neutrophils (%) (Auto) 89.7 % Lymphocytes (%) (Auto) 6.6 % Monocytes (%) (Auto) 3.3 % Eosinophils (%) (Auto) 0.0 % Basophils (%) (Auto) 0.2 % Neutrophils # (Auto) 11.75 1.4-6.5 K/uL Lymphocytes # (Auto) 0.87 1.2-3.4 K/uL Monocytes # (Auto) 0.43 0.11-0.59 K/uL Eosinophils # (Auto) 0.00 0-0.5 K/uL Basophils # (Auto) 0.02 0-0.2 K/uL RDW Standard Deviation 41.4 36.4-46.3 fL RDW Coefficient of Variation 13.0 11.5-14.5 % Immature Granulocyte % (Auto) 0.2 % Immature Granulocyte # (Auto) 0.02 0.00-0.02 K/uL Sodium Level 138 136-145 mmol/L Potassium Level 4.2 3.5-5.1 mmol/L Chloride Level 106 98-107 mmol/L Carbon Dioxide Level 25 21-32 mmol/L Anion Gap 7.0 3-11 mmol/L Blood Urea Nitrogen 14 7-18 mg/dl Creatinine 1.00 0.60-1.40 mg/dl Est Creatinine Clear Calc Drug Dose 103.4 ml/min Estimated GFR () 102.0 Estimated GFR (Non- 88.0 BUN/Creatinine Ratio 14.1 10-20 Random Glucose 126 70-99 mg/dl Calcium Level 9.3 8.5-10.1 mg/dl Total Bilirubin 0.5 0.2-1 mg/dl Aspartate Amino Transf (AST/SGOT) 17 15-37 U/L Alanine Aminotransferase (ALT/SGPT) 31 12-78 U/L Alkaline Phosphatase 52 45-117 U/L Total Protein 7.8 6.4-8.2 gm/dl Albumin 3.9 3.4-5.0 gm/dl Globulin 3.9 2.5-4.0 gm/dl Albumin/Globulin Ratio 1.0 0.9-2 Lipase 187 73-393 U/L Assessment & Plan POD # 1 s/p laparoscopic cholecystectomy -vitals stable - abdominal pain minimal and controlled - tolerating regular diet Plan: Plan to discharge home today Discharge instructions reviewed with patient Rx for Percocet prn pain Follow-up in surgical office in [address] Aaron has seen and examined patient, agrees with above
[2017-06-01 11:22] VITALS: BP 151/91; PULSE 84; TEMP 36.4; O2SAT 96
--- NOTE | 2017-06-02 12:04 | Discharge Summary ---
Discharge Summary Dates Admission Date / Time: May 31, 2017 at 16:05 Discharge Date: Jun 01, 2017 Dispostion / Condition Discharge Disposition: Home Condition at Discharge: Good Principal Diagnosis (1) Acute calculous cholecystitis (2) Vomiting (3) Diffuse abdominal pain Problem List (1) Hypertension (2) Anxiety Consultations / Procedures Consultations: None Procedures: Laparoscopic Cholecystectomy Medication Reconciliation New Medications: Oxycodone/Acetaminophen 5MG/325MG (Percocet 5MG/325MG) Tab 1-2 TABLETS PO Q4H PRN for Pain, #30 TAB Continued Medications: Metoprolol Succ (Toprol Xl) (Toprol-Xl) 25 Mg Tabcr 25 MG PO DAILY, #30 TAB Sertraline (Zoloft) 25 Mg Tab 25 MG PO DAILY, TAB Admission HPI Per the Admitting provider: Trev is a 51 year-old male who presented to emergency department today with complaint of abdominal pain and vomiting that began this morning around 4 am. States he was in his normal state of health yesterday and woke up feeling ill to his stomach and then had some vomiting. States he ate hot sausage Monday night which caused some discomfort and upset stomach but then felt better up until now. Ate [employer] stefany last evening. Had some sweating with the vomiting. Had some diarrhea starting Monday however resolved. Denies of any fever, chills , vomiting blood, changes in bowel habits, constipation, blood in stools or black/tarry stools. Denies of similar abdominal pain. Denies of any issues with his gallbladder in the past. Denies of any previous abdominal surgeries. History of hypertension and anxiety. No blood thinning agents. His wbc was raised at 13k, cmp including LFTs , total bilirubin, and lipase within normal limits CT scan of abdomen and pelvis showed gallbladder wall thickening, pericholecystic fluid consistent with acute cholecystitis US of the abdomen showed gallbladder wall thickening, pericholecystic fluid, and 1.7 cm stone at neck of gallbladder consistent with acute cholecystitis Admission Exam Per the Admitting provider: General Appearance: WD/WN, no apparent distress Head: normocephalic, atraumatic Eyes: sclerae normal ENT: hearing grossly normal Neck: trachea midline Respiratory/Chest: lungs clear, normal breath sounds, no respiratory distress, no accessory muscle use Cardiovascular: regular rate, rhythm, normal peripheral pulses Abdomen/GI: normal bowel sounds, soft, no organomegaly, no pulsatile mass, + tenderness (RUQ on deep palpation, negative Torres's sign on exam, no peritonitis) Back: normal inspection Extremities/Musculoskelatal: no pedal edema Neurologic/Psych: alert, normal mood/affect, oriented x 3 Skin: normal color, warm/dry, no rash Lymphatic: no adenopathy Hospital Course (1) Acute calculous cholecystitis Patient was taken to operating room for emergency department for laparoscopic possible open cholecystectomy. Patient tolerated procedure well without difficulty and was transferred to recovery and then medical/surgical floor in stable condition. His diet was advanced to regular diet. IV fluids were continued. He was started on PO Percocet as well as breakthrough IV Morphine as needed for pain. IV zofran as needed for nausea. Activity as tolerated. POD # 1 patient was doing well, pain controlled, tolerated regular diet, vitals stable, afebrile, and urinating without difficulty. Patient felt much better than preoperatively and wanted to go home. He was discharged home on POD # 1 in stable condition. Discharge Instructions as given to patient Copies To Primary Care Provider: William Neumann M.D..
== END 2017-06-01 11:49 | disposition home or self-care (01) ==
LOC: C.EDB 08:53 → C.MSW 16:05 → ENRESERV 17:02
PROVIDERS: ADMIT Surgery; ATTEND Surgery
DX: K80.12 Calculus of gallbladder with acute and chronic cholecystitis without obstruction (principal); I10 Essential (primary) hypertension; Z68.43 Body mass index [BMI] 50.0-59.9, adult; E66.9 Obesity, unspecified

== ENCOUNTER 2017-12-21 16:03 | Emergency (ER) | payer OTHER ==
[~2017-12-21] VITALS: Ht 175.3 cm; Wt 93.4 kg
[~2017-12-21 16:03] MED LIST changes: +SERT25TA PO
[2017-12-21 16:07] VITALS: TEMP 36.6; Ht 175.3 cm; Wt 93.4 kg
[2017-12-21] MEDS ORDERED: LIDOCAINE/EPINEPH/TETRACAINE 1 EA SYR EXT STA (16:46)
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
[2017-12-21 18:09] VITALS: BP 139/87; PULSE 84; O2SAT 96
== END 2017-12-21 18:10 | disposition home or self-care (01) ==
LOC: C.EDB 16:05 → C.EDD 18:10
DX: S01.81XA Laceration without foreign body of other part of head, initial encounter (principal); W22.8XXA Striking against or struck by other objects, initial encounter; Y92.89 Other specified places as the place of occurrence of the external cause; Z79.899 Other long term (current) drug therapy; F17.210 Nicotine dependence, cigarettes, uncomplicated